=== PATIENT | female | born 1965 | race African-American/Black ===

== ENCOUNTER 2019-12-18 13:13 | Emergency (ER) | payer OTHER ==
[2019-12-18 13:52] VITALS: BP 135/80; PULSE 85; TEMP 97.5; BMI 33.8
[2019-12-18] MEDS ORDERED: ACETAMINOPHEN 325 MG TABLET (FP) PO ONE (16:05)
[2019-12-18] MEDS ORDERED: ACETAMINOPHEN 325 MG TABLET (FP) ONE (16:08)
--- NOTE | 2019-12-18 16:16 | PDOC ---
History of Present Illness - General Chief Complaint: Injury Stated Complaint: FALL Time Seen by Provider: 12/18/19 15:40 History Source: Patient Exam Limitations: No Limitations - History of Present Illness Initial Comments: 12/18/19 16:14 54-year-old female denies past medical history presents complaining of frontal headache, right upper back pain, left knee pain, right-sided hip pain, right lower leg pain status post slip and fall in the tub yesterday morning. Patient denies taking any anticoagulation. States that she was lying in the tub for approximately 20 minutes before she was able to get out. Questionable LOC, denies neck pain, nausea, vomiting, chest pain, shortness of breath, abdominal pain. ROS: As above PE: GENERAL: well-appearing, NAD HEAD: NCAT, no canchola sign EYES: Pupils equal, round and reactive to light, sclera anicteric, conjunctiva clear ENT: Bilateral normal ear canals, bilateral normal TMs, pharynx: no erythema, no exudate, uvula midline NECK: supple CHEST: nontender RESP: clear, no w/r/r CARDIO: rrr, no m/g/r ABD: +BS, soft, nontender, non distended BACK: no midline spinal ttp, no CVAT EXTREMITIES: Normal range of motion, no edema NEUROLOGICAL: Normal speech, ambulating with slight limp SKIN: Moderate swelling noted to right upper back, no ecchymosis, abrasions or lacerations noted, warm, Dry Is this a multiple visit Asthma Patient?: No Past History - Past Medical History Allergies/Adverse Reactions: Allergies Allergy/AdvReac Type Severity Reaction Status Date / Time No Known Drug Allergies Allergy Verified 12/18/19 13:48 Home Medications: Ambulatory Orders NK [No Known Home Medication] 09/04/14 Anemia: No Asthma: No Cancer: No Cardiac Disorders: No CVA: No COPD: No CHF: No Dementia: No Diabetes: No GI Disorders: No Disorders: No HTN: No Hypercholesterolemia: No Liver Disease: No Seizures: No Thyroid Disease: No - Psycho Social/Smoking Cessation Hx Smoking Status: No Smoking History: Never smoked Have you smoked in the past 12 months: No Number of Cigarettes Smoked Daily: 4 If you are a former smoker, when did you quit?: 4yrs ago Information on smoking cessation initiated: No Hx Alcohol Use: No Drug/Substance Use Hx: No Substance Use Type: Alcohol Hx Substance Use Treatment: No *Physical Exam - Vital Signs Last Vital Signs Temp Pulse Resp BP Pulse Ox 97.5 F L 85 16 135/80 100 12/18/19 13:48 12/18/19 13:48 12/18/19 13:48 12/18/19 13:48 12/18/19 13:48 ED Treatment Course - RADIOLOGY Radiology Studies Ordered: Category Date Time Status CERVICAL SPINE CT W/O CONTR [CT] Stat CT Scan 12/18/19 16:[address] WITHOUT CONTRAST [CT] Stat CT Scan 12/18/19 16:01 Ordered KNEE 2 POS-LEFT [RAD] Stat Radiology 12/18/19 16:03 Ordered PELVIS [RAD] Stat Radiology 12/18/19 16:03 Ordered SHOULDER-RIGHT [RAD] Stat Radiology 12/18/19 16:02 Ordered - Medications Given in the ED: ED Medications Discontinued Medications Generic Name Dose Route Start Last Admin Trade Name Freq PRN Reason Stop Dose Admin Acetaminophen 650 mg 12/18/19 16:05 12/18/19 16:09 Tylenol - PO 12/18/19 16:06 650 mg ONCE ONE Administration Medical Decision Making - Medical Decision Making 12/18/19 18:04 54-year-old female denies past medical history complaining of frontal headache, right upper back pain, left knee pain, right lower leg pain, right hip pain status post mechanical slip and fall while in the tub yesterday. Does not take anticoagulants. Head CT, cervical CT: Unremarkable left knee x-ray, pelvis x-ray, right shoulder x-ray all negative for acute fracture P.o. acetaminophen provided Advised patient to follow-up with primary care physician within 1 week Discharge - Discharge Information Problems reviewed: Yes Clinical Impression/Diagnosis: Contusion Qualifiers: Encounter type: initial encounter Contusion area: shoulder Laterality: left Qualified Code(s): S40.012A - Contusion of left shoulder, initial encounter Head injury Qualifiers: Encounter type: initial encounter Qualified Code(s): S09.90XA - Unspecified injury of head, initial encounter Condition: Stable Disposition: HOME - Admission No - Follow up/Referral Referrals: Oseas Chaparro MD [Primary Care Provider] - - Patient Discharge Instructions Additional Instructions: Alternate between acetaminophen 650 mg and ibuprofen 600 every 6 hours as needed for pain Follow-up with your primary care physician within 1 week If you develop worsening headache, nausea, vomiting or any other concerns return to the ED - Post Discharge Activity
== END 2019-12-18 18:18 | disposition home or self-care (01) ==
LOC: JERFT 13:13
DX: S09.8XXA Other specified injuries of head, initial encounter (principal); S40.012A Contusion of left shoulder, initial encounter; M25.561 Pain in right knee; M25.562 Pain in left knee; M25.551 Pain in right hip; W18.2XXA Fall in (into) shower or empty bathtub, initial encounter; Y93.E1 Activity, personal bathing and showering; Y92.031 Bathroom in apartment as the place of occurrence of the external cause; Y99.8 Other external cause status
CPT/HCPCS: 70450-TC; 72125-TC; 72170-TC-FY; 73030-TC-RT-FY; 73560-TC-LT-FY; 99284-25